=== PATIENT | female | born 1970 | race Caucasian/White ===

== ENCOUNTER 2020-08-01 05:59 | Emergency (ER) | payer SELFPAY ==
[2020-08-01 06:09] VITALS: BP 183/118; PULSE 83; RESP 18; TEMP 36.2; O2SAT 95; BMI 41.3
--- NOTE | 2020-08-01 06:10 | W.ED.EXTPRO ---
HPI - Extremity Problem General: Chief complaint: Extremity Problem,Nontraumatic Stated complaint: R. Knee Pain/Swelling Time Seen by Provider: 08/01/20 06:08 History of Present Illness: HPI Narrative: 49-year-old female presents complaining of right knee pain for the last 3 weeks. She is previously seen at an outside facility and was given a knee immobilizer. She denies any trauma or known injury. States she is not able to bear weight. She is diabetic. She has no skin breakdown or ulcerations. No previous surgeries on that knee. MD Complaint: joint pain Onset (ago): week(s) (3) Pain Consistency: constant Location: right, lower extremity and knee Quality: sharp Relieving factors: immobilization Exacerbating factors: weight bearing and walking Associated symptoms: Deny arthralgias, chest pain, fever(s), myalgias, rash or short of breath Review of Systems Const: Denies: fever(s) ENMT: Denies: throat pain, ear or mastoid pain, nasal discharge or nasal congestion Card: Denies: chest pain Resp: Denies: dyspnea, productive cough or non-productive cough GI: Denies: abdominal pain, nausea, vomiting, hematemesis, coffee ground emesis, diarrhea, constipation, bloating, hematochezia or melena : Denies: flank pain, difficulty voiding, dysuria, urinary frequency or urinary urgency Skin/Breast: Denies: rash Physical Exam Const: COMMON NORMALS: no acute distress GENERAL APPEARANCE: cooperative and comfortable ORIENTATION/CONSCIOUSNESS: Yes awake, Yes oriented to person, Yes oriented to place and Yes oriented to time HENMT: COMMON NORMALS: normocephalic, atraumatic and hearing grossly normal bilaterally HEAD & SCALP: normocephalic and atraumatic Resp: COMMON NORMALS: normal respiratory effort, No retractions, No use of accessory muscles and clear to auscultation bilaterally AUSCULTATION: clear to auscultation bilaterally Cardio: COMMON NORMALS: regular rate, regular rhythm and No murmurs present (Cardio) RATE: regular rate RHYTHM: regular rhythm Extremity: COMMON NORMALS: normal to inspection, capillary refill normal, no clubbing, cyanosis or edema, no calf tenderness and no pedal edema NARRATIVE EXTREMITY EXAM: Lower extremities neurovascular intact dorsalis pedis pulse on the right foot palpable normal sensation normal dorsum plantar flex strength 5 of 5. Limited exam of the knee visualize there is no erythema no induration moderate appears to be's joint effusion. Patient would not tolerate physical exam of the knee due to pain Neuro: SENSORIUM/ORIENTATION: Yes oriented to person, Yes oriented to place and Yes oriented to time Skin: COMMON NORMALS: no rashes or lesions noted GENERAL SKIN EXAM: no rashes or lesions noted Course Vital Signs: Vital signs: Vital Signs Temperature 97.1 F L 08/01/20 06:09 Pulse Rate 83 08/01/20 06:09 Respiratory Rate 18 08/01/20 06:09 Blood Pressure 183/118 08/01/20 06:09 Pulse Oximetry 95 08/01/20 06:09 MDM - Extremity (Nontraumatic) MDM Narrative: Medical decision making narrative: Nothing acute on plain films of the knee. Will discharge patient home continue to use knee immobilizer nonweightbearing diclofenac as needed we will set her up for Ortho for follow-up and consideration of advanced imaging. No specific exam that was done on the knee at this visit as patient would not tolerate due to pain. Discharge Plan Discharge Patient Disposition: Home Clinical Impression: Knee pain, right Condition: Stable Prescriptions: New diclofenac sodium 75 mg tablet,delayed release (DR/EC) 75 mg PO Q12H PRN (Reason: pain) Qty: 20 RF: 0 Discharge Orders: Discharge ED (Routine); Ordered 08/01/20 Ordered By: Eleazar Ramsey Discharge Diet: Usual diet Discharge Activity: Limit activity as instructed Patient Instructions: Opioid Safety Activity Restrictions/Additional Instructions: Nonweightbearing, continue to use immobilizer and crutches. Diclofenac as needed ice as needed Case management will call to make arrangements for you to see orthopedics. 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
--- NOTE | 2020-08-01 06:11 | XRR_ITS ---
PROCEDURE INFORMATION: Exam: XR Right Knee Exam date and time: 08/01/2020 6:13 AM Age: 49 years old Clinical indication: Pain; Knee; Right; Additional info: Pain RT knee x 3 wks TECHNIQUE: Imaging protocol: XR Right knee. Views: 3 views. COMPARISON: No relevant prior studies available. FINDINGS: Bones/joints: There is mild joint space narrowing seen within the medial and anterior compartments of the right knee compatible with degenerative joint disease. Soft tissues: Normal. XR/XR knee RT 3V* [id number] IMPRESSION: There are no acute osseous findings.
[2020-08-01] MEDS: ketorolac 60 mg/2 mL INJ IM (06:35)
--- NOTE | 2020-08-02 09:54 | DCPLANNER ---
manager client support had message to schedule a follow up appointment for patient with ortho for nontraumatic right knee pain. manager client support called the ortho clinic, spoke with Kate, gave clinic patients information. manager client support was told that patients information would be printed and reviewed. Clinic will call patient with appointment information.
--- NOTE | 2020-08-04 14:29 | DCPLANNER ---
Patient has a follow up appointment scheduled for Saturday, August at 1:[address] Jacques. Clinic will call patient with appointment information.
--- NOTE | 2020-09-28 08:25 | DCPLANNER ---
Patient had a follow up appointment scheduled for 08.08.[address] Jacques at [facility] - patient did attend appointment.
== END 2020-08-01 06:50 | disposition home or self-care (01) ==
PROVIDERS: Emergency Provider Family Medicine
DX: M25.561 Pain in right knee (principal)
CPT/HCPCS: 73562; 96372; 99283; J1885

== ENCOUNTER 2020-10-29 18:19 | Emergency (ER) | payer SELFPAY ==
[2020-10-29 19:01] VITALS: BP 203/128; PULSE 82; RESP 20; TEMP 36.8; O2SAT 97; BMI 41.3
--- NOTE | 2020-10-29 19:18 | XRR_ITS ---
PROCEDURE INFORMATION: Exam: XR Lumbosacral Spine Exam date and time: 10/29/2020 7:18 PM Age: 49 years old Clinical indication: Patient HX: Low back pain x 1 weeks; Additional info: Persistent back pain TECHNIQUE: Imaging protocol: XR of the lumbosacral spine. Views: 2 or 3 views. COMPARISON: CR Abdomen Series Acute [id number] 08/22/2015 1:34 PM FINDINGS: Bones/joints: Spinal alignment is normal. Vertebral body height is maintained. There is mild degenerative disc disease at L4-L5 and L5-S1. There is mild facet spondylosis in the lower lumbar spine. Visible portions of the ribs are intact. The visible portion of the pelvis and sacrum is intact. Soft tissues: Unremarkable. XR/XR lumbar spine 2-3V* [id number] IMPRESSION: 1. No acute findings. 2. Mild lower lumbar degenerative disc and facet disease.
--- NOTE | 2020-10-29 19:19 | ED_ITS ---
HPI - Back Pain/Injury General: Chief Complaint: Back Pain/Injury Stated Complaint: mid back pain Time Seen by Provider: 10/29/20 18:58 History of Present Illness: HPI Narrative: 49-year-old female comes in with low back pain. Patient reports pain since Saturday. Patient has been seen in the emergency department at [facility] with minimal relief with ibuprofen and Flexeril. Patient denies any change in bowel or bladder habits. Patient denies any fever. Patient does appear well. Patient appears in moderate pain. Patient reports history of low back pain. Review of Systems General: Reports: 10 or more systems reviewed and unremarkable except in HPI and below Musc: Reports: back pain Physical Exam Const: COMMON NORMALS: no acute distress and patient oriented x3 GENERAL AP PEARANCE: cooperative HENMT: COMMON NORMALS: normocephalic and Normal external nose present HEAD & SCALP: normal to inspection and normocephalic NOSE: Normal external nose present Eye: GENERAL EYE: appearance normal, both eyes and all related structures Neck/C-Spine: COMMON NORMALS: full ROM Chest: COMMONS NORMALS: normal inspection of the chest Resp: COMMON NORMALS: normal respiratory effort EFFORT & INSPECTION: Yes able to speak in complete sentences Cardio: COMMON NORMALS: regular rate and regular rhythm RATE: regular rate RHYTHM: regular rhythm GI: COMMON NORMALS: non-tender Back/Pelvis: THORACIC SPINE/UPPER BACK: Yes normal to inspection LUMBAR SPINE/LOWER BACK: No lumbar spinal tenderness, Yes paraspinal muscle tenderness Lumbar paraspinal muscle tenderness: bilateral Bilateral lumbar paraspinal muscle tenderness: L4 and L5 and Yes paraspinal muscle spasm Lumbar paraspinal muscle spasm: right Right lumbar paraspinal muscle spasm: L5 Extremity: COMMON NORMALS: normal to inspection Neuro: COMMON NORMALS: patient oriented x3 and moves all extremities Psych: COMMON NORMALS: mental status grossly normal and cooperative Skin: COMMON NORMALS: no rashes or lesions noted GENERAL SKIN EXAM: no rashes or lesions noted Course Vital Signs: Vital signs: Vital Signs Temperature 98.3 F 10/29/20 19:01 Pulse Rate 82 10/29/20 19:01 Respiratory Rate 22 H 10/29/20 19:33 Blood Pressure 203/128 10/29/20 19:01 Pulse Oximetry 97 10/29/20 19:01 MDM - Back Pain/Injury MDM Narrative: Medical decision making narrative: 49-year-old female comes in today with low back pain that she is unable to control with home medications. Patient has taken Aleve and ibuprofen with minimal to no relief. Patient is also on some cyclobenzaprine for reported muscle spasm. Patient was first seen at [facility] on Saturday and started on NSAID and muscle relaxer. Patient did not have much improvement and went to the ER last night but was recommended to continue with her routine care. Patient comes in today due to worsening back pain. Patient denies any fever or loss of bowel or bladder control. On exam patient has no midline tenderness but has bilateral muscles tenderness and pain. Vital signs noted some elevation in blood pressure. Differential diagnosis includes not limited to intervertebral disc disease, facet arthropathy, muscle spasm, muscle strain. X-ray of the lumbar spine indicated no fractures. There was some degenerative changes noted. Patient was given 4 mg of morphine and 60 mg orphenadrine with good control of pain and muscle spasms. Patient was written a prescription for some hydrocodone for her breakthrough pain and was recommended to continue with acetaminophen and ibuprofen along with Flexeril. Patient requested something other than Flexeril and wanted orphenadrine which we was given in the ER. We will write for the orphenadrine for 5 days 1 tablet twice a day as recommended. Patient reports understanding of care plan and need for follow-up or return to the ER. Discharge Plan Discharge Patient Disposition: Home Clinical Impression: Low back pain Qualifiers: Chronicity: acute Back pain laterality: bilateral Sciatica presence: without sciatica Qualified Code(s): M54.5 - Low back pain Condition: Stable Prescriptions: New hydrocodone-acetaminophen 5-325 mg tablet 1 tab PO Q6H PRN (Reason: pain (scale score 7-10)) Qty: 10 RF: 0 orphenadrine citrate 100 mg tablet extended release 100 mg PO BID PRN (Reason: muscle spasm) Qty: 10 RF: 0 No Action diclofenac sodium 75 mg tablet,delayed release (DR/EC) 75 mg PO Q12H PRN (Reason: pain) Qty: 20 RF: 0 Discharge Orders: Discharge ED (Routine); Ordered 10/29/20 Ordered By: Mike Lindsay Discharge Diet: Usual diet Discharge Activity: Increase activity as tolerated Patient Instructions: Acute Low Back Pain (ED), Opioid Safety Activity Restrictions/Additional Instructions: Activity as tolerated. Gentle stretching and range of motion exercises. Drink plenty of water with medication. Continue with Flexeril for muscle relaxation. Use Tylenol and ibuprofen for control of pain. Use hydrocodone for breakthrough pain. Follow-up with primary care in 3 to 5 days for recheck. Return to the ER for new concerns. 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
[2020-10-29] MEDS: cloNIDine 0.1 mg Tablet PO (19:32)
[2020-10-29 19:33] VITALS: RESP 22
[2020-10-29] MEDS: morphine 4 mg/mL SDV 1 mL IM (19:33)
[2020-10-29] MEDS: orphenadrine 30 mg/mL Inj 2 mL 60 MG IM (19:35)
[2020-10-29 20:55] LABS: Add Urine Microscopic? YES; Bilirubin Urine Neg (Negative); Blood Urine 2+ (Negative); Glucose Urine UA 4+ (Normal); Ketones Urine Negative (Negative); Leukocyte Esterase Urine 1+ (Negative); Nitrate Urine Negative (Negative); Protein Urine Neg (Negative); Specific Gravity, Urine 1.005 (1.005-1.030); Urine Appearance Clear (CLEAR); Urine Color Yellow (Yellow); Urobilinogen Urine Norm (Negative); pH Urine 7 (5-7)
[2020-10-29 20:56] LABS: Add Urine Culture? No; Bacteria Urine TRACE /hpf; Squamous Epithelial Cell Urine 0-4 /hpf (0-5); WBC Urine 0-4 /hpf (0-5)
[2020-10-29 21:13] VITALS: BP 179/98; PULSE 71; RESP 18; O2SAT 97
== END 2020-10-29 20:45 | disposition home or self-care (01) ==
PROVIDERS: Emergency Provider Nurse Practitioner Family
DX: M54.5 Low back pain (principal)
CPT/HCPCS: 72100; 81001; 96372; 99283; J2270; J2360